=== PATIENT | female | born 1950 | race Caucasian/White ===

== ENCOUNTER 2016-08-21 20:56 | Emergency (ER) | payer OTHER, BC ==
[~2016-08-21] VITALS: Ht 165.1 cm; Wt 63.9 kg
[~2016-08-21 20:56] MED LIST: AMOX TR-K CLV1 EAC4 PO; ASCORBIC ACID500 M3 PO; CRANBERRY450 M1 PO; CYCLOBENZAPRINE5 MG PO; FIBER THERAPY500 MG PO; FISH OIL 1,4001 EACH PO; FLUTICASONE PRO16 GM BOTH NARES; LEVOTHYROXINE88 MCG PO; LUNESTA2 MG PO; NITROFURANTOIN100 M3 PO; VITAMIN B-6100 MG PO; VITAMIN D-32000 UNI1 PO; VITAMIN E400 UNI6 PO; ZANAFLEX2 M1 PO; ZANAFLEX2 MG PO
[2016-08-21 22:45] VITALS: BP 158/93
== END 2016-08-21 22:45 | disposition home or self-care (01) ==
LOC: EME → EDBD 20:56 → EME 20:56
DX: R39.89 Other symptoms and signs involving the genitourinary system (principal); Z96.0 Presence of urogenital implants; Z87.442 Personal history of urinary calculi
CPT/HCPCS: 99281; 99284

== ENCOUNTER 2016-08-24 18:48 | Emergency (ER) | payer OTHER, BC ==
[~2016-08-24] VITALS: Ht 165.1 cm; Wt 64.5 kg
[2016-08-24 20:17] LABS: HEMATOCRIT 42.5 % (36.0-46.0); MCH 30.4 PG (29.0-34.0); MCHC 34.1 G/DL (30.0-36.0); MCV 89.1 FL (83-99); MEAN PLAT.VOLUME 10.3 uM^3 (9.5-12.4); PLATELET COUNT 252 K/uL (156-360); RBC DIS.WIDTH-CV 12.5 % (11.8-14.6); RBC DIS.WIDTH-SD 41.2 % (39-53); RED BLOOD COUNT 4.77 M/uL (3.80-5.20); WHITE BLOOD COUNT 7.8 K/uL (4.1-10.2)
[2016-08-24 20:26] LABS: CHLORIDE 107 mEq/L (99-109); POTASSIUM 4.1 mEq/L (3.7-5.4); SODIUM 140 mEq/L (136-147)
[2016-08-24 20:28] LABS: GLUCOSE 94 mg/dL (70-99)
[2016-08-24 20:29] LABS: ANION GAP 12 MEQ/L (2-14)
[2016-08-24 20:30] LABS: TOTAL BILIRUBIN 0.7 mg/dL (0.0-1.0)
[2016-08-24 20:31] LABS: ALKALINE PHOSPHATASE 88 IU/L (3-129)
[2016-08-24 20:32] LABS: GFR ESTIMATE (CALCULATED) > 59 mL/min/
[2016-08-24 20:33] LABS: UREA NITROGEN (BUN) 19 mg/dL (9-23)
[2016-08-24 21:01] LABS: ADD MIUA? YES; BILIRUBIN NEGATIVE; BLOOD MODERATE; COLOR AMBER ((YELLOW)); GLUCOSE (STRIP) NEGATIVE; KETONES 5; LEUKOCYTES LARGE; NITRITE POSITIVE; PROTEIN (STRIP) 30; SPECIFIC GRAVITY 1.005 (1.000-1.030); UROBILINOGEN 0.2 MG/DL (0.2-1.0)
[2016-08-24 21:25] LABS: BACTERIA 3+ /HPF; CALCIUM OXALATE CRYSTALS RARE /HPF; CASTS NONE SEEN /LPF; CRYSTALS PRESENT; EPITHELIAL CELLS RARE /HPF; MUCUS NONE SEEN /LPF; RED BLOOD CELLS 15-20 /HPF (0-5); UCUL ADDED? YES; WHITE BLOOD CELLS TNTC /HPF (0-5)
[2016-08-25] VITALS: BP 171/93
[2016-08-25] MEDS ORDERED: KEFLEX500 MG PO (00:38)
== END 2016-08-25 00:24 | disposition home or self-care (01) ==
LOC: EME 18:48
PROC: 0T2BX0Z Change Drainage Device in Bladder, External Approach (ICD-10-PCS; principal; 2016-08-24)
DX: N39.0 Urinary tract infection, site not specified (principal); E86.0 Dehydration
CPT/HCPCS: 74176; 80053; 81003; 85027; 87077; 87086; 87186; 99281; 99285; J7030

== ENCOUNTER → 2017-03-31 | Outpatient (CLI) | payer OTHER, BC ==
[~2017-03-31] MED LIST changes: +KEFLEX500 MG PO
== END | disposition home or self-care (01) ==
LOC: CDC 10:13
DX: Z01.810 Encounter for preprocedural cardiovascular examination (principal); R94.31 Abnormal electrocardiogram [ECG] [EKG]
CPT/HCPCS: 93000